=== PATIENT | female | born 1970 | race Caucasian/White ===

== ENCOUNTER 2016-05-19 10:16 | Observation (INO) | payer OTHER ==
[~2016-05-19] VITALS: Ht 165.1 cm; Wt 79.9 kg
[~2016-05-19 10:16] MED LIST: AUGMENTIN875 MG PO; ESTROVEN 155 M155 MG PO; MOTRIN600 MG PO; TRAMADOL HCL50 MG PO
[2016-05-19 10:43] LABS: HEMATOCRIT 44.6 % (36.0-46.0); MCH 26.7 PG (29.0-34.0); MCHC 33.6 G/DL (30.0-36.0); MCV 79.4 FL (83-99); MEAN PLAT.VOLUME 9.9 uM^3 (9.5-12.4); PLATELET COUNT 333 K/uL (156-360); RBC DIS.WIDTH-SD 43.3 % (39-53); RED BLOOD COUNT 5.62 M/uL (3.80-5.20); WHITE BLOOD COUNT 7.4 K/uL (4.1-10.2)
[2016-05-19 11:15] LABS: CHLORIDE 103 mEq/L (99-109); POTASSIUM 3.5 mEq/L (3.7-5.4); SODIUM 138 mEq/L (136-147)
[2016-05-19 11:17] LABS: GLUCOSE 109 mg/dL (70-99)
[2016-05-19 11:19] LABS: ANION GAP 13 MEQ/L (2-14)
[2016-05-19 11:21] LABS: GFR ESTIMATE (CALCULATED) > 59 mL/min/
[2016-05-19 11:22] LABS: UREA NITROGEN (BUN) 8 mg/dL (9-23)
[2016-05-19 11:25] LABS: TROP-I INTERPRETATION NEGATIVE; TROPONIN-I 0.05 ng/mL (0.0-0.30)
[2016-05-19 13:00] VITALS: BP 152/79
[2016-05-19 16:53] VITALS: BP 136/65
[2016-05-19 18:38] LABS: TROP-I INTERPRETATION NEGATIVE; TROPONIN-I 0.08 ng/mL (0.0-0.30)
[2016-05-19 21:22] VITALS: BP 143/88
[2016-05-20] VITALS: BP 146/75
[2016-05-20 00:57] LABS: TROP-I INTERPRETATION NEGATIVE; TROPONIN-I 0.09 ng/mL (0.0-0.30)
[2016-05-20 05:00] VITALS: BP 119/70
[2016-05-20 05:34] LABS: POINT-OF-CARE METER ID UU14162513
[2016-05-20 08:00] VITALS: BP 136/74
[2016-05-20 09:35] LABS: HDL CHOLESTEROL 30 MG/DL (Desirable>=50); LDL CHOLESTEROL 165 mg/dL (Desirable<100); NON-HDL CHOLESTEROL 222 mg/dL (Desirable<160); TOTAL CHOLESTEROL 252 mg/dL (Desirable<200); TRIGLYCERIDES 283 MG/DL (Normal: <150)
[2016-05-20 09:55] LABS: TROP-I INTERPRETATION NEGATIVE; TROPONIN-I 0.06 ng/mL (0.0-0.30)
[2016-05-20] MEDS ORDERED: PROTONIX20 MG PO (12:35)
[2016-05-20 18:31] LABS: Estimated Average Glucose 123 mg/dL (70-123); HEMOGLOBIN A1c (GLYCOHEMOGLOB) 5.9 % HGB (Below 5.7)
== END 2016-05-20 13:07 | disposition home or self-care (01) ==
LOC: EME 10:16 → EDOF 11:53 → 5WEST 13:17
PROVIDERS: Hospitalist; Nurse Practitioner Adult Health
DX: R07.9 Chest pain, unspecified (principal); R94.31 Abnormal electrocardiogram [ECG] [EKG]; R03.0 Elevated blood-pressure reading, without diagnosis of hypertension; E78.5 Hyperlipidemia, unspecified; M79.602 Pain in left arm; F17.200 Nicotine dependence, unspecified, uncomplicated; Z88.7 Allergy status to serum and vaccine; Z88.1 Allergy status to other antibiotic agents; Z88.8 Allergy status to other drugs, medicaments and biological substances; Z80.0 Family history of malignant neoplasm of digestive organs; Z83.3 Family history of diabetes mellitus
CPT/HCPCS: 71020; 80048; 80061; 82948; 83036; 84484; 85027; 93005; 99281; 99284; G0378